=== PATIENT | male | born 1960 | race African-American/Black ===

== ENCOUNTER 2017-02-20 19:09 | Inpatient (IN) | payer MEDICARE, MEDICAID ==
[~2017-02-20] VITALS: Ht 191.8 cm; Wt 127.0 kg
[~2017-02-20 19:09] MED LIST: ALBU2.5V13 IH; AMLO10TA4 PO; FURO-151 PO; HYDR-3513 PO; KDUR20 PO; MONT10TA21 PO; MULT-1116 PO
[2017-02-20] MEDS ORDERED: ALBUTEROL (0.083%) 2.5MG/3ML NEB HHN STA (22:44)
[2017-02-20] MEDS ORDERED: FUROSEMIDE 40MG/4ML VIAL IV STA (22:44)
[2017-02-20] MEDS ORDERED: NITROGLYCERIN OINT 1GM/INCH UDPKT TD STA (22:44)
[2017-02-20] MEDS ORDERED: METHYLPREDNISOLONE SOD SUCC 125 MG/2 ML VIAL IV STA (22:44)
[2017-02-20] MEDS ORDERED: ASPIRIN 81MG TABLET PO STA (22:44)
[2017-02-20] MEDS ORDERED: IPRATROPIUM BROMIDE (0.02%) 0.5MG/2.5ML NEB HHN STA (22:44)
[2017-02-20 23:26] LABS: BASOPHILS % 1.1 % (0.0-2.0); EOSINOPHILS % 1.7 % (0.0-5.0); HEMATOCRIT. 39.5 % (42.0-52.0); HEMOGLOBIN. 13.3 g/dL (14.0-18.0); LYMPHOCYTES % 23.1 % (20.0-50.0); MEAN CORPUSCULAR HEMOGLOBIN 29.1 pg (28.0-32.0); MEAN CORPUSCULAR VOLUME 86.4 fL (80.0-94.0); MEAN PLATELET VOLUME 8.6 fl (7.4-10.4); MONOCYTES % 8.9 % (2.0-8.0); NEUTROPHILS % 65.2 % (40.0-76.0); PLATELET 161 x1000/uL (130-400); RED BLOOD CELL COUNT 4.57 mill/uL (4.7-6.1); RED CELL DISTRIBUTION WIDTH 13.7 % (11.6-14.6)
[2017-02-20 23:36] LABS: INR 1.3; PARTIAL THROMBOPLASTIN TIME 32.9 sec (24.0-34.0)
[2017-02-20 23:45] LABS: CARBON DIOXIDE 28 mEq/L (21-32); CHLORIDE 104 mEq/L (98-107); TROPONIN I < 0.02 ng/mL (0.00-0.04)
[2017-02-21 04:00] VITALS: BP 122/87
[2017-02-21 04:40] VITALS: BP 122/87
[2017-02-21] MEDS: ACETAMINOPHEN 325MG TABLET PO PRN ×2 (06:26→16:21)
[2017-02-21 08:00] VITALS: BP 111/83
[2017-02-21] MEDS: MULTIVITAMINS,THER W-MINERALS TABLET PO SCH (08:20)
[2017-02-21] MEDS: POTASSIUM CHLORIDE 20MEQ TABLET SR PO SCH ×2 (08:20→16:21)
[2017-02-21] MEDS: FUROSEMIDE 40MG TABLET PO SCH ×2 (08:20→16:21)
[2017-02-21] MEDS: HYDROCODONE/APAP 7.5/325MG 1 TAB TABLET PO PRN (08:22)
[2017-02-21] MEDS: AMLODIPINE 10MG TABLET PO SCH (08:23)
[2017-02-21] MEDS: IPRATROPIUM/ALBUTEROL 0.5-3(2.5)MG/3ML NEB HHN SCH ×4 (11:40→20:37)
[2017-02-21 12:00] VITALS: BP 116/74
[2017-02-21 16:00] VITALS: BP 123/75
[2017-02-21 20:00] VITALS: BP 117/71
[2017-02-21] MEDS: MONTELUKAST SODIUM 10MG TABLET PO SCH (20:48)
[2017-02-22] VITALS (7 sets, daily range): BP systolic 120–132; BP diastolic 72–88
[2017-02-22] MEDS: IPRATROPIUM/ALBUTEROL 0.5-3(2.5)MG/3ML NEB HHN SCH ×7 (00:41→23:54)
[2017-02-22] MEDS: HYDROCODONE/APAP 7.5/325MG 1 TAB TABLET PO PRN (01:57)
[2017-02-22] MEDS: AMLODIPINE 10MG TABLET PO SCH (09:08)
[2017-02-22] MEDS: POTASSIUM CHLORIDE 20MEQ TABLET SR PO SCH ×2 (09:08→18:29)
[2017-02-22] MEDS: FUROSEMIDE 40MG TABLET PO SCH ×2 (09:08→18:28)
[2017-02-22] MEDS: MULTIVITAMINS,THER W-MINERALS TABLET PO SCH (09:08)
[2017-02-22] MEDS ORDERED: ALBUTEROL (0.5%) 2.5MG/0.5ML NEB HHN PRN ×2 (19:45→20:00)
[2017-02-22] MEDS ORDERED: METHYLPREDNISOLONE SOD SUCC 40 MG/ML VIAL IV NR (20:00)
[2017-02-22] MEDS: AZITHROMYCIN 500 MG TABLET PO SCH (20:38)
[2017-02-22] MEDS: MONTELUKAST SODIUM 10MG TABLET PO SCH (20:39)
[2017-02-22] MEDS ORDERED: SODIUM CHLORIDE 45ML SPRAY NS PRN (21:30)
[2017-02-22] MEDS: FLUTICASONE PROPIONATE 50MCG/SPRAY BOTTLE BOTHNSTRLS SCH (21:32)
[2017-02-23] VITALS: BP 128/88
[2017-02-23] MEDS: HYDROCODONE/APAP 7.5/325MG 1 TAB TABLET PO PRN (02:41)
[2017-02-23 04:00] VITALS: BP 122/78
[2017-02-23] MEDS: IPRATROPIUM/ALBUTEROL 0.5-3(2.5)MG/3ML NEB HHN SCH ×4 (04:14→16:50)
[2017-02-23 07:35] VITALS: BP 129/85
[2017-02-23 08:16] VITALS: BP 118/78
[2017-02-23] MEDS ORDERED: PREDNISONE 20MG TABLET PO SCH (09:00)
[2017-02-23] MEDS: FLUTICASONE PROPIONATE 50MCG/SPRAY BOTTLE BOTHNSTRLS SCH (10:18)
[2017-02-23] MEDS: AMLODIPINE 10MG TABLET PO SCH (10:18)
[2017-02-23] MEDS: POTASSIUM CHLORIDE 20MEQ TABLET SR PO SCH ×2 (10:18→17:49)
[2017-02-23] MEDS: AZITHROMYCIN 500 MG TABLET PO SCH (10:18)
[2017-02-23] MEDS: FUROSEMIDE 40MG TABLET PO SCH ×2 (10:19→17:49)
[2017-02-23] MEDS: MULTIVITAMINS,THER W-MINERALS TABLET PO SCH (10:19)
[2017-02-23 12:00] VITALS: BP 122/80
[2017-02-23 17:32] VITALS: BP 129/85
== END 2017-02-23 18:40 | disposition home or self-care (01) | DRG 190 ==
LOC: EDBEDREQ 02-21 00:18 → ER 02-21 01:06 → 5WST 02-21 01:15 → ENRESERV 02-21 02:59 → 5WST 02-22 13:11
PROVIDERS: ADMIT Internal Medicine; ATTEND Internal Medicine
PROC: 5A09357 Assistance with Respiratory Ventilation, Less than 24 Consecutive Hours, Continuous Positive Airway Pressure (ICD-10-PCS; principal; 2017-02-22)
DX: J44.1 Chronic obstructive pulmonary disease with (acute) exacerbation (principal); I50.41 Acute combined systolic (congestive) and diastolic (congestive) heart failure; E44.1 Mild protein-calorie malnutrition; G47.33 Obstructive sleep apnea (adult) (pediatric); J31.0 Chronic rhinitis; I11.0 Hypertensive heart disease with heart failure; Z53.29 Procedure and treatment not carried out because of patient's decision for other reasons; M19.90 Unspecified osteoarthritis, unspecified site; Z82.49 Family history of ischemic heart disease and other diseases of the circulatory system; Z98.84 Bariatric surgery status; E66.01 Morbid (severe) obesity due to excess calories; E78.5 Hyperlipidemia, unspecified; M10.9 Gout, unspecified; Z79.899 Other long term (current) drug therapy; J44.0 Chronic obstructive pulmonary disease with (acute) lower respiratory infection; J20.9 Acute bronchitis, unspecified; J45.909 Unspecified asthma, uncomplicated; Z68.34 Body mass index [BMI] 34.0-34.9, adult
CPT/HCPCS: 36415; 71010; 80053; 83880; 84484; 85025; 85610; 85730; 93005; 93970; 94640; 94644; 96374; 96375; 99285; J1940; J2920; J2930; J7512; J7611; J7620

== ENCOUNTER 2018-03-31 14:40 | Emergency (ER) | payer MEDICARE, MEDICAID ==
[~2018-03-31] VITALS: Ht 182.9 cm; Wt 136.0 kg
[2018-03-31] MEDS ORDERED: HYDROCODONE/ACETAMINOPHEN 5/325MG TABLET PO ONE (18:15)
[2018-03-31 21:12] VITALS: BP 129/72
== END 2018-03-31 21:14 | disposition home or self-care (01) ==
LOC: ER 17:22
DX: M25.551 Pain in right hip (principal); I10 Essential (primary) hypertension; I50.9 Heart failure, unspecified; G89.29 Other chronic pain; M54.5 Low back pain
CPT/HCPCS: 72192; 73700; 99284

== ENCOUNTER 2022-01-15 13:36 | Emergency (ER) | payer MEDICARE, MEDICAID ==
[~2022-01-15] VITALS: Ht 193 cm; Wt 145.0 kg
[~2022-01-15 13:36] MED LIST changes: +NAPR-681 PO
[2022-01-15] MEDS ORDERED: ACETAMINOPHEN 650MG/20.3ML UDC PO NR (18:00)
[2022-01-15 18:44] VITALS: BP 141/87
[2022-01-15] MEDS ORDERED: HYDROCODONE/ACETAMINOPHEN 10/325MG TABLET PO ONE (18:45)
== END 2022-01-15 18:50 | disposition home or self-care (01) ==
LOC: ER 13:36
DX: M25.561 Pain in right knee (principal); J45.909 Unspecified asthma, uncomplicated; I11.0 Hypertensive heart disease with heart failure; I50.9 Heart failure, unspecified; M54.9 Dorsalgia, unspecified; G89.29 Other chronic pain; V43.52XA Car driver injured in collision with other type car in traffic accident, initial encounter; Y93.89 Activity, other specified; Y92.410 Unspecified street and highway as the place of occurrence of the external cause; Z98.84 Bariatric surgery status
CPT/HCPCS: 99283

== ENCOUNTER 2023-07-21 10:57 | Emergency (ER) | payer MEDICARE, MEDICAID ==
[~2023-07-21] VITALS: Ht 191.8 cm; Wt 176.0 kg
[~2023-07-21 10:57] MED LIST changes: +MONT-46 PO; -MONT10TA21 PO
[2023-07-21 11:02] VITALS: O2SAT 98
[2023-07-21] MEDS ORDERED: LIDOCAINE 5% PATCH TOP STA (13:06)
[2023-07-21] MEDS ORDERED: KETOROLAC 60MG/2ML VIAL IM ONE (13:15)
[2023-07-21] MEDS ORDERED: HYDROCODONE/ACETAMINOPHEN 7.5/325MG TABLET PO ONE (13:15)
[2023-07-21 13:57] VITALS: BP 140/78
[2023-07-21 13:59] VITALS: PULSE 65; RESP 18; TEMP 98
== END 2023-07-21 14:00 | disposition home or self-care (01) ==
LOC: ER 10:57
DX: M25.512 Pain in left shoulder (principal); G89.29 Other chronic pain; M54.50 Low back pain, unspecified; I11.0 Hypertensive heart disease with heart failure; I50.9 Heart failure, unspecified; J45.909 Unspecified asthma, uncomplicated; Z79.899 Other long term (current) drug therapy
CPT/HCPCS: 99283; 96372; J1885

== ENCOUNTER 2024-05-10 09:08 | Emergency (ER) | payer MEDICARE, MEDICAID ==
[~2024-05-10] VITALS: Ht 193 cm; Wt 172.0 kg
[2024-05-10 09:33] VITALS: O2SAT 99
[2024-05-10 11:18] VITALS: BP 143/99; PULSE 67; RESP 18; TEMP 36.78072; O2SAT 99
== END 2024-05-10 11:21 | disposition home or self-care (01) ==
LOC: ER 09:08
DX: S00.86XA Insect bite (nonvenomous) of other part of head, initial encounter (principal); I11.0 Hypertensive heart disease with heart failure; I50.9 Heart failure, unspecified; J45.909 Unspecified asthma, uncomplicated; Z79.899 Other long term (current) drug therapy; W57.XXXA Bitten or stung by nonvenomous insect and other nonvenomous arthropods, initial encounter; Y93.89 Activity, other specified; Y92.89 Other specified places as the place of occurrence of the external cause; Y99.8 Other external cause status
CPT/HCPCS: 99281

== ENCOUNTER 2024-06-18 09:30 | Emergency (ER) | payer MEDICARE, MEDICAID ==
[~2024-06-18] VITALS: Ht 193 cm; Wt 165.0 kg
[2024-06-18 09:33] VITALS: O2SAT 97
[2024-06-18] MEDS: ACETAMINOPHEN 325MG TABLET PO ONE (10:45)
[2024-06-18] MEDS ORDERED: CYCL10TA21 MT (11:11)
[2024-06-18] MEDS ORDERED: ACET-2708 MT (11:11)
[2024-06-18] MEDS ORDERED: IBUP-2030 MT (11:11)
[2024-06-18 11:17] VITALS: BP 155/87; PULSE 88; RESP 18; TEMP 36.39180; O2SAT 97
== END 2024-06-18 12:26 | disposition home or self-care (01) ==
LOC: ER 09:30
DX: M54.2 Cervicalgia (principal); M54.50 Low back pain, unspecified; J45.909 Unspecified asthma, uncomplicated; I11.0 Hypertensive heart disease with heart failure; I50.9 Heart failure, unspecified; Z79.899 Other long term (current) drug therapy
CPT/HCPCS: 72040; 72100; 99284